=== PATIENT | female | born 1960 | race Caucasian/White ===

== ENCOUNTER 2020-03-24 13:19 | Emergency (ER) | payer OTHER ==
[2020-03-24 14:06] VITALS: BP 123/77; PULSE 85; TEMP 97.4; BMI 24.1
== END 2020-03-24 14:54 | disposition home or self-care (01) ==
LOC: JER 13:19
DX: Z11.52 Encounter for screening for COVID-19 (principal); J06.9 Acute upper respiratory infection, unspecified
CPT/HCPCS: 99283-25; 99284-25